=== PATIENT | male | born 1955 | race Asian ===

== ENCOUNTER 2017-08-07 09:15 | Emergency (ER) | payer OTHER ==
[~2017-08-07] VITALS: Ht 172.7 cm; Wt 72.0 kg
[2017-08-07] MEDS ORDERED: HYDROmorphone 1 MG/ML, 1ML IM ONE ×2 (09:30→11:30)
[2017-08-07] MEDS ORDERED: ONDANSETRON ODT 4 MG PO ONE (09:30)
[2017-08-07] MEDS ORDERED: KETOROLAC 30 MG/1 ML IM ONE (09:30)
[2017-08-07] MEDS ORDERED: METHOCARBAMOL 750 MG TABLET PO ONE (09:30)
[2017-08-07] MEDS ORDERED: HYDROmorphone 2 MG/ML, 1ML ONE ×2 (09:31→11:30)
[2017-08-07] MEDS ORDERED: KETOROLAC 30 MG/1 ML ONE (09:31)
[2017-08-07] MEDS ORDERED: ONDANSETRON ODT 4 MG ONE (09:31)
[2017-08-07] MEDS ORDERED: METHOCARBAMOL 750 MG TABLET ONE (09:31)
[2017-08-07 12:41] VITALS: BP 108/71
== END 2017-08-07 12:48 | disposition home or self-care (01) ==
LOC: ED 10:54
DX: S39.012A Strain of muscle, fascia and tendon of lower back, initial encounter (principal); X58.XXXA Exposure to other specified factors, initial encounter; Y93.89 Activity, other specified; Y99.8 Other external cause status; Y92.89 Other specified places as the place of occurrence of the external cause
CPT/HCPCS: 72110; 96372; 99284; J1170; J1885; Q0162